=== PATIENT | male | born 1980 | race African-American/Black ===

== ENCOUNTER 2017-11-05 02:17 | Emergency (ER) | payer SELFPAY ==
[2017-11-05] MEDS ORDERED: Ketorolac Tromethamine 60 MG/2 ML VIAL ONE (02:51)
[2017-11-05] MEDS ORDERED: Cyclobenzaprine 10 MG TAB ONE (02:51)
== END 2017-11-05 03:45 | disposition home or self-care (01) ==
LOC: ERS 02:17
DX: S16.1XXA Strain of muscle, fascia and tendon at neck level, initial encounter (principal); S39.012A Strain of muscle, fascia and tendon of lower back, initial encounter; S29.012A Strain of muscle and tendon of back wall of thorax, initial encounter; F41.9 Anxiety disorder, unspecified; G47.00 Insomnia, unspecified; F17.200 Nicotine dependence, unspecified, uncomplicated; Y99.0 Civilian activity done for income or pay
CPT/HCPCS: 96372; J1885

== ENCOUNTER 2018-03-07 00:02 | Emergency (ER) | payer SELFPAY | END 2018-03-07 02:46 | disposition left against medical advice (07) | LOC: ERS 00:02 | DX: Z53.21 Procedure and treatment not carried out due to patient leaving prior to being seen by health care provider (principal) ==

== ENCOUNTER 2018-09-01 10:08 | Emergency (ER) | payer SELFPAY ==
[2018-09-01] MEDS ORDERED: Ketorolac Tromethamine 60 MG/2 ML VIAL ONE (12:08)
[2018-09-01] MEDS ORDERED: diphenhydrAMINE 50 MG/ML VIAL ONE (12:08)
[2018-09-01] MEDS ORDERED: Metoclopramide HCl 10 MG TAB ONE (12:09)
[2018-09-01] MEDS ORDERED: Metoclopramide HCl 10 MG TAB PO SCH (12:15)
--- NOTE | 2018-09-01 12:17 | CT ---
CT OF BRAIN PERFORMED WITHOUT CONTRAST ENHANCEMENT: Date: 09/01/18 HISTORY: Headache. COMPARISON: 09/23/07 exam. FINDINGS: The ventricular and cisternal system is within normal limits. There are no signs of intracerebral hem orrhage or extra-axial fluid collections. The mastoid air cells and visualized sinuses are clear. IMPRESSION: No acute intracranial abnormalities. POS: [facility]
== END 2018-09-01 13:20 | disposition home or self-care (01) ==
LOC: ERS 10:08
DX: J01.90 Acute sinusitis, unspecified (principal); F41.9 Anxiety disorder, unspecified; G47.00 Insomnia, unspecified; F17.210 Nicotine dependence, cigarettes, uncomplicated; F90.9 Attention-deficit hyperactivity disorder, unspecified type; F31.9 Bipolar disorder, unspecified; F20.9 Schizophrenia, unspecified
CPT/HCPCS: 70450; 96372; J1200; J1885; J8597

== ENCOUNTER 2018-10-29 12:53 | Emergency (ER) | payer SELFPAY ==
[2018-10-29 13:18] LABS: Hemoglobin 13.7 g/dL (14.0-18.0); Mean Corpuscular HGB CONC 34.1 g/dL (32.0-36.0); Mean Corpuscular Hemoglobin 33.8 pg (27.0-31.0); Mean Corpuscular Volume 99.1 fL (78.0-98.0); Mean Platelet Volume 7.1 fL (7.4-10.4); Platelet Count 234 thou/uL (130-400); RBC Distribution Width 10.8 % (11.5-14.5); Red Blood Cell (RBC) Count 4.05 mill/uL (4.70-6.10); White Blood Cell (WBC) Count 7.2 thou/uL (4.8-10.8)
[2018-10-29 13:39] LABS: ALT (SGPT) 23 U/L (8-55); AST (SGOT) 28 U/L (5-34); Albumin 4.2 g/dL (3.5-5.0); Alkaline Phosphatase 57 U/L (40-150); Anion Gap 9 mmol/L (10-20); BUN (Urea Nitrogen) 8 mg/dL (8.9-20.6); Bilirubin, Total 0.7 mg/dL (0.2-1.2); Calc. Creatinine Clearance 0 mL/min (70-130); Calcium 9.5 mg/dL (7.8-10.44); Carbon Dioxide 30 mmol/L (22-29); Chloride 103 mmol/L (98-107); Estimated GFR-MDRD Greater than 90; Globulin 3.3 g/dL (2.4-3.5); Glucose 64 mg/dL (70-105); Lipase 17 U/L (8-78); Protein, Total 7.5 g/dL (6.0-8.3); Sodium 138 mmol/L (136-145)
[2018-10-29 13:40] LABS: Lymphocytes 48 % (21-51); MDiff Complete? YES; Monocytes 4 % (0-10); Neutrophil 48 % (42-75); Platelet Morphology Comment Appears Adequate; RBC Morphology Normal
== END 2018-10-29 13:42 | disposition home or self-care (01) ==
LOC: ERS 12:53
DX: R10.30 Lower abdominal pain, unspecified (principal); F31.9 Bipolar disorder, unspecified; F20.9 Schizophrenia, unspecified; F41.9 Anxiety disorder, unspecified; F90.9 Attention-deficit hyperactivity disorder, unspecified type; G47.00 Insomnia, unspecified; F17.210 Nicotine dependence, cigarettes, uncomplicated
CPT/HCPCS: 36415; 80053; 83690; 85025; 99284

== ENCOUNTER 2018-11-07 16:59 | Emergency (ER) | payer SELFPAY ==
[2018-11-07 17:35] LABS: Bilirubin Negative (Negative); Blood, Urine Negative (Negative); Clarity CLEAR (Clear); Glucose, Urine (Dipstick) Negative (Negative); Leukocyte Negative (Negative); Nitrite Negative (Negative); Protein, Urine (Dipstick) Negative (Neg-Trace); Specific Gravity, Urine 1.019 (1.002-1.036); Urobilinogen 0.2 mg/dL (0.2-1.0)
[2018-11-07 17:36] LABS: Hemoglobin 13.2 g/dL (14.0-18.0); Mean Corpuscular HGB CONC 33.3 g/dL (32.0-36.0); Mean Corpuscular Hemoglobin 33.3 pg (27.0-31.0); Mean Platelet Volume 7.4 fL (7.4-10.4); Platelet Count 231 thou/uL (130-400); RBC Distribution Width 10.9 % (11.5-14.5); Red Blood Cell (RBC) Count 3.95 mill/uL (4.70-6.10); White Blood Cell (WBC) Count 7.2 thou/uL (4.8-10.8)
[2018-11-07] MEDS ORDERED: Ondansetron PF 4 MG/2 ML Vial ONE (17:38)
--- NOTE | 2018-11-07 17:47 | RAD ---
Exam: Chest one view HISTORY:Chest pain Comparison: 04/06/2016 FINDINGS: Cardiac silhouette: Normal Pulmonary vessels: Normal Costophrenic angles: Clear LUNGS: No masses or consolidation. Pneumothorax: None Osseous abnormalities: None IMPRESSION: No acute cardiopulmonary process.
[2018-11-07 17:56] LABS: ALT (SGPT) 26 U/L (8-55); AST (SGOT) 28 U/L (5-34); Albumin 4.3 g/dL (3.5-5.0); Alkaline Phosphatase 54 U/L (40-150); Anion Gap 11 mmol/L (10-20); BUN (Urea Nitrogen) 10 mg/dL (8.9-20.6); Bilirubin, Total 0.6 mg/dL (0.2-1.2); CK (CPK) 161 U/L (30-200); Calc. Creatinine Clearance 0 mL/min (70-130); Calcium 9.6 mg/dL (7.8-10.44); Carbon Dioxide 29 mmol/L (22-29); Chloride 102 mmol/L (98-107); Estimated GFR-MDRD Greater than 90; Globulin 3.2 g/dL (2.4-3.5); Glucose 65 mg/dL (70-105); Lipase 19 U/L (8-78); Potassium 3.7 mmol/L (3.5-5.1); Protein, Total 7.5 g/dL (6.0-8.3); Sodium 138 mmol/L (136-145)
[2018-11-07 17:57] LABS: Band 1 % (5-11); Eosinophils 1 % (0-10); Lymphocytes 68 % (21-51); MDiff Complete? YES; Monocytes 5 % (0-10); Neutrophil 24 % (42-75); Platelet Morphology Comment Appears Adequate; Reactive Lymphocytes 1 % (0-10)
[2018-11-07] MEDS ORDERED: Ketorolac Tromethamine 30 MG/ML VIAL ONE (18:56)
== END 2018-11-07 19:45 | disposition home or self-care (01) ==
LOC: ERS 16:59
DX: M79.10 Myalgia, unspecified site (principal); R11.2 Nausea with vomiting, unspecified; R19.7 Diarrhea, unspecified; F31.9 Bipolar disorder, unspecified; F20.9 Schizophrenia, unspecified; F41.9 Anxiety disorder, unspecified; F90.9 Attention-deficit hyperactivity disorder, unspecified type; G47.00 Insomnia, unspecified; F17.210 Nicotine dependence, cigarettes, uncomplicated
CPT/HCPCS: 71045; 80053; 81003; 82550; 83690; 85025; 93005; 96361; 96374; 96375; J1885; J2405

== ENCOUNTER 2019-06-13 14:30 | Emergency (ER) | payer SELFPAY ==
[2019-06-13] MEDS ORDERED: Acetaminophen 500 MG TAB ONE (15:06)
--- NOTE | 2019-06-13 15:33 | RAD ---
XR Chest 1 View Portable HISTORY: Fever and cough COMPARISON: 11/07/2018 FINDINGS: The heart size is normal. The lungs are well expanded without focal areas of consolidation, pneumothorax or pleural effusions. IMPRESSION: No radiographic evidence of acute cardiopulmonary process.
[2019-06-13 15:42] LABS: #Basophils 0.1 thou/uL (0.0-0.2); #Lymphocytes 2.8 thou/uL (1.20-3.40); #Neutrophils 7.1 thou/uL (1.40-6.50); %Basophils 0.5 % (0.0-1.0); %Eosinophils 0.1 % (0.0-10.0); %Lymphocytes 25.4 % (21.0-51.0); %Monocytes 9.1 % (0.0-10.0); %Neutrophils 64.9 % (42.0-75.0); Hemoglobin 12.9 g/dL (14.0-18.0); Mean Corpuscular HGB CONC 33.8 g/dL (32.0-36.0); Mean Corpuscular Hemoglobin 33.1 pg (27.0-31.0); Mean Corpuscular Volume 97.9 fL (78.0-98.0); Mean Platelet Volume 7.5 fL (7.4-10.4); Platelet Count 164 thou/uL (130-400); RBC Distribution Width 10.9 % (11.5-14.5); Red Blood Cell (RBC) Count 3.89 mill/uL (4.70-6.10)
[2019-06-13 16:04] LABS: ALT (SGPT) 26 U/L (8-55); AST (SGOT) 31 U/L (5-34); Alkaline Phosphatase 56 U/L (40-110); Anion Gap 13 mmol/L (10-20); BUN (Urea Nitrogen) 8 mg/dL (8.9-20.6); Calc. Creatinine Clearance 0 mL/min (70-130); Calcium 8.1 mg/dL (7.8-10.44); Carbon Dioxide 27 mmol/L (22-29); Chloride 103 mmol/L (98-107); Estimated GFR-MDRD Greater than 90; Globulin 3.2 g/dL (2.4-3.5); Glucose 107 mg/dL (70-105); Potassium 3.4 mmol/L (3.5-5.1); Protein, Total 7.2 g/dL (6.0-8.3); Sodium 140 mmol/L (136-145)
[2019-06-13 16:15] LABS: Bacteria/HPF None Seen HPF (None Seen); Bilirubin Negative (Negative); Blood, Urine Trace (Negative); Clarity Clear (Clear); Glucose, Urine (Dipstick) Normal (Negative); Leukocyte Negative Leu/uL (Negative); Mucous/LPF Rare LPF (<2+); Nitrite Negative (Negative); Protein, Urine (Dipstick) 20 mg/dL (Neg-Trace); Squamous Epithelial 0-3 HPF (0-3); Urobilinogen 6 mg/dL (Less than 2)
[2019-06-13] MEDS ORDERED: cefTRIAXone\\ROCEPHIN 2 GM VIAL ONE (16:32)
[2019-06-13] MEDS ORDERED: Azithromycin 250 MG TAB ONE (16:43)
== END 2019-06-13 17:30 | disposition home or self-care (01) ==
LOC: ERS 14:30
DX: J20.9 Acute bronchitis, unspecified (principal); E86.0 Dehydration; F41.9 Anxiety disorder, unspecified; F31.9 Bipolar disorder, unspecified; F20.9 Schizophrenia, unspecified; G47.00 Insomnia, unspecified; F90.9 Attention-deficit hyperactivity disorder, unspecified type; F17.210 Nicotine dependence, cigarettes, uncomplicated
CPT/HCPCS: 36415; 71045; 80053; 81003; 81015; 83605; 85025; 87804; 96361; 96365; J0696

== ENCOUNTER 2021-07-04 02:31 | Emergency (ER) | payer SELFPAY ==
[2021-07-04 16:23] LABS: SARS-CoV-2 PCR by NAA DETECTED (NotDetected)
== END 2021-07-04 03:04 | disposition home or self-care (01) ==
LOC: ERS 02:31
DX: U07.1 COVID-19 (principal)
CPT/HCPCS: 99283; U0003; U0005

== ENCOUNTER 2022-08-19 19:46 | Emergency (ER) | payer OTHER | END 2022-08-19 23:11 | disposition home or self-care (01) | LOC: ERS 19:46 | DX: J02.9 Acute pharyngitis, unspecified (principal); F17.210 Nicotine dependence, cigarettes, uncomplicated; Z20.822 Contact with and (suspected) exposure to COVID-19 | CPT/HCPCS: 87081; 87430; 87804; 99283; U0003; U0005 ==

== ENCOUNTER 2022-09-01 18:57 | Emergency (ER) | payer OTHER, SELFPAY ==
[2022-09-01 19:51] LABS: Hemoglobin 13.7 g/dL (14.0-18.0); Mean Corpuscular HGB CONC 33.9 g/dL (32.0-36.0); Mean Corpuscular Hemoglobin 33.9 pg (27.0-31.0); Mean Platelet Volume 7.3 fL (7.4-10.4); Platelet Count 302 10x3/uL (130-400); Red Blood Cell (RBC) Count 4.04 mill/uL (4.70-6.10); White Blood Cell (WBC) Count 7.8 10x3/uL (4.8-10.8)
[2022-09-01 20:09] LABS: ALT (SGPT) 89 U/L (8-55); AST (SGOT) 71 U/L (5-34); Albumin 4.1 g/dL (3.5-5.0); Alkaline Phosphatase 103 U/L (40-110); Anion Gap 13 mmol/L (10-20); BUN (Urea Nitrogen) 10 mg/dL (8.9-20.6); Bilirubin, Total 0.3 mg/dL (0.2-1.2); Calc. Creatinine Clearance 0 mL/min (70-130); Calcium 9.5 mg/dL (7.8-10.44); Carbon Dioxide 25 mmol/L (22-29); Chloride 105 mmol/L (98-107); Estimated GFR 74; Globulin 4.1 g/dL (2.4-3.5); Glucose 103 mg/dL (70-105); Potassium 4.7 mmol/L (3.5-5.1); Protein, Total 8.2 g/dL (6.0-8.3); Sodium 138 mmol/L (136-145)
[2022-09-01 20:40] LABS: Band 1 % (5-11); Differential Comment Immature Cell(s); Eosinophils 1 % (0-10); Giant Platelets SLIGHT; Lymphocytes 67 % (21-51); MDiff Complete? YES; Macrocytosis SLIGHT = 6-15 cells (100X) (0-5/hpf); Monocytes 3 % (0-10); Neutrophil 25 % (42-75); Ovalocytes SLIGHT = 2-5 cells (100X) (0-1/hpf); Platelet Morphology Comment Appears Adequate; Reactive Lymphocytes 2 % (0-10); Reflex for Review?? YES
[2022-09-01] MEDS ORDERED: Nitroglycerin 0.4 MG TAB 1 EACH ONE (22:02)
[2022-09-01] MEDS ORDERED: Acetaminophen 500 MG TAB ONE (22:02)
[2022-09-01] MEDS ORDERED: Aspirin 325 MG TAB ONE (22:02)
[2022-09-01] MEDS ORDERED: Nitroglycerin 2% Ointment 1 INCH/1 GM Packet ONE (22:02)
== END 2022-09-01 23:22 | disposition home or self-care (01) ==
LOC: ERS 18:57
DX: R07.89 Other chest pain (principal); F17.210 Nicotine dependence, cigarettes, uncomplicated
CPT/HCPCS: 36415; 71045; 80053; 84484; 85025; 85060; 93005

== ENCOUNTER 2022-09-05 01:33 | Emergency (ER) | payer SELFPAY ==
[2022-09-05] MEDS ORDERED: Nitroglycerin 2% Ointment 1 INCH/1 GM Packet ONE (01:49)
[2022-09-05 02:14] LABS: Hemoglobin 13.9 g/dL (14.0-18.0); Mean Corpuscular HGB CONC 34.2 g/dL (32.0-36.0); Mean Corpuscular Hemoglobin 33.7 pg (27.0-31.0); Mean Corpuscular Volume 98.7 fl (78.0-98.0); Mean Platelet Volume 7.5 fL (7.4-10.4); Platelet Count 313 10x3/uL (130-400); Red Blood Cell (RBC) Count 4.13 mill/uL (4.70-6.10); White Blood Cell (WBC) Count 8.9 10x3/uL (4.8-10.8)
[2022-09-05 02:33] LABS: ALT (SGPT) 65 U/L (8-55); AST (SGOT) 40 U/L (5-34); Albumin 4.3 g/dL (3.5-5.0); Alkaline Phosphatase 91 U/L (40-110); Anion Gap 13 mmol/L (10-20); BUN (Urea Nitrogen) 13 mg/dL (8.9-20.6); Bilirubin, Total 0.5 mg/dL (0.2-1.2); Calc. Creatinine Clearance 0 mL/min (70-130); Calcium 9.9 mg/dL (7.8-10.44); Carbon Dioxide 27 mmol/L (22-29); Chloride 100 mmol/L (98-107); Estimated GFR 78; Globulin 3.3 g/dL (2.4-3.5); Glucose 108 mg/dL (70-105); Potassium 4.2 mmol/L (3.5-5.1); Protein, Total 7.6 g/dL (6.0-8.3); Sodium 136 mmol/L (136-145)
[2022-09-05 02:42] LABS: Eosinophils 1 % (0-10); Lymphocytes 49 % (21-51); MDiff Complete? YES; Monocytes 8 % (0-10); Neutrophil 42 % (42-75); Platelet Morphology Comment Appears Adequate; Polychromasia SLIGHT = 2-3 cells (100X) (0-2/hpf)
== END 2022-09-05 03:09 | disposition home or self-care (01) ==
LOC: ERS 01:33
DX: I31.9 Disease of pericardium, unspecified (principal); I10 Essential (primary) hypertension; F17.210 Nicotine dependence, cigarettes, uncomplicated
CPT/HCPCS: 36415; 71045; 80053; 83880; 84484; 85025; 93005